=== PATIENT | female | born 1960 | race Caucasian/White ===

== ENCOUNTER 2017-09-01 14:07 | Inpatient (IN) | payer OTHER ==
[~2017-09-01] VITALS: Ht 160 cm; Wt 89.8 kg
[~2017-09-01 14:07] MED LIST: AMOX1TAB12 PO; ATROVENT 00.5 MG/2.5 IH; CALCIO; CALCITRIOL0.25 MCG PO; CIPRO500 MG PO; DESPEC-DM TABL1 EACH PO; DIAZEPAM10 MG PO; DOLOGESIC-DF 51 EACH PO; KETO10TA2 PO; LEVAQUIN750 MG PO; MILLIPRED DP5 M1; ORPH100T PO; PREDNISONE10 MG PO; PREVENT SOFTGEL1 CAP PO; PROTONIX40 MG PO; PROVENTIL3 ML/2.5 M IH; QVAR7.3 G1 IH; SINGULAIR 10MG10 MG PO; SYNTHROID50 MCG; TAMS0.4C PO; TESSALON PERLE100 M1 PO; VITAMINAS; XOPENEX0.63 MG/3 IH; ZITHROMAX500 MG PO; ZYNCOF 20-400120 ML PO
[2017-09-01] MEDS ORDERED: CANABI MEDICINAL (14:24)
[2017-09-02] MEDS ORDERED: TURMERIC COMPL1 EACH PO (12:27)
[2017-09-02] MEDS ORDERED: [UNRECOGNIZED DRUG - OTHER] PO (12:28)
[2017-09-02] MEDS ORDERED: CANNABIS OIL (12:29)
[2017-09-02] MEDS ORDERED: METHOTREXA25 MG/1 M5 IJ (12:29)
[2017-09-11] MEDS ORDERED: LEVOTHYROXINE75 MCG PO (08:17)
[2017-09-11] MEDS ORDERED: FOLIC ACID1 MG PO (08:17)
[2017-09-11] MEDS ORDERED: TURMERIC COMPL1 EACH PO (08:17)
[2017-09-11] MEDS ORDERED: LOSARTAN-HCTZ1 EACH PO (08:17)
== END 2017-09-11 12:03 | disposition home or self-care (01) | DRG 813 ==
LOC: ER 14:07 → SEC-K 09-02 06:49 → SURH 09-02 06:49
PROC: 30233R1 Transfusion of Nonautologous Platelets into Peripheral Vein, Percutaneous Approach (ICD-10-PCS; principal; 2017-09-02)
PROC: 8E0ZXY6 Isolation (ICD-10-PCS; 2017-09-02)
DX: D69.59 Other secondary thrombocytopenia (principal); M79.7 Fibromyalgia; E03.8 Other specified hypothyroidism; E06.3 Autoimmune thyroiditis; M06.89 Other specified rheumatoid arthritis, multiple sites; J45.998 Other asthma; I10 Essential (primary) hypertension; K29.60 Other gastritis without bleeding

== ENCOUNTER → 2017-09-18 | Emergency (ER) | payer OTHER ==
[~2017-09-18] VITALS: Ht 160 cm; Wt 81.6 kg
[~2017-09-18] MED LIST changes: +CANABI MEDICINAL; +CANNABIS OIL; +FOLIC ACID1 MG PO; +LEVOTHYROXINE75 MCG PO; +LOSARTAN-HCTZ1 EACH PO; +METHOTREXA25 MG/1 M5 IJ; +TURMERIC COMPL1 EACH PO; +[UNRECOGNIZED DRUG - OTHER] PO
== END | disposition home or self-care (01) ==
LOC: ER 14:11
DX: D69.6 Thrombocytopenia, unspecified (principal)

== ENCOUNTER → 2017-09-22 | Emergency (ER) | payer OTHER ==
[~2017-09-22] VITALS: Ht 160 cm; Wt 89.8 kg
== END | disposition home or self-care (01) ==
LOC: ER 10:46
DX: D69.49 Other primary thrombocytopenia (principal); M79.7 Fibromyalgia; B34.9 Viral infection, unspecified; J06.9 Acute upper respiratory infection, unspecified; R06.02 Shortness of breath; K29.70 Gastritis, unspecified, without bleeding; I10 Essential (primary) hypertension; R05 Cough
CPT/HCPCS: 36430; 86922; 86904; P9021

== ENCOUNTER 2017-09-30 12:27 | Emergency (ER) | payer OTHER ==
[~2017-09-30] VITALS: Ht 160 cm; Wt 89.8 kg
== END 2017-10-02 02:51 | disposition home or self-care (01) ==
LOC: ER 12:27
DX: D69.3 Immune thrombocytopenic purpura (principal)
CPT/HCPCS: 86922; 36430; 86904; P9032